=== PATIENT | male | born 1975 | race Caucasian/White ===

== ENCOUNTER 2017-10-06 13:33 | Emergency (ER) | payer BC, OTHER ==
[~2017-10-06] VITALS: Ht 175.3 cm; Wt 88.5 kg
[2017-10-06] MEDS ORDERED: METF1000 PO (14:11)
[2017-10-06] MEDS ORDERED: GLIP10TA13 PO (14:11)
[2017-10-06] MEDS ORDERED: ATOR10TA66 PO (14:11)
[2017-10-06] MEDS ORDERED: ESOM20TA PO (14:11)
[2017-10-06] MEDS ORDERED: LISI10TA2 PO (14:11)
[2017-10-06] MEDS ORDERED: METF-761 PO (14:11)
[2017-10-06 14:25] LABS: CLARITY,URINE CLEAR; COLOR,URINE YELLOW; GLUCOSE, URINE (UA) 2+ (NEGATIVE); KETONES,URINE 1+ (NEGATIVE); LEUKOCYTE ESTERASE ,URINE 2+ (NEGATIVE); NITRITE,URINE NEGATIVE (NEGATIVE); PH,URINE 5 (5-9); PROTEIN,URINE 2+ (NEGATIVE); UROBILINOGEN,URINE 4 MG/DL (NORMAL)
[2017-10-06 14:36] LABS: BASOPHILS % (AUTO) 0 % (0-10); EOSINOPHILS # (AUTO) 0.2 10^3/uL (0.0-0.3); EOSINOPHILS % (AUTO) 2 % (0-10); HEMATOCRIT 46 % (40-54); HEMOGLOBIN 16.2 G/DL (13.3-17.7); LYMPHOCYTES % (AUTO) 22 % (12-44); MEAN CORPUSCULAR HEMOGLOBIN 30 PG (25-34); MEAN CORPUSCULAR HGB CONC 35 G/DL (32-36); MEAN CORPUSCULAR VOLUME 86 FL (80-99); MEAN PLATELET VOLUME 10.3 FL (7.4-10.4); MONOCYTES # (AUTO) 1.2 X 10^3 (0.0-1.0); MONOCYTES % (AUTO) 9 % (0-12); NEUTROPHILS # (AUTO) 9.1 X 10^3 (1.8-7.8); NEUTROPHILS % (AUTO) 68 % (42-75); PLATELET COUNT 236 10^3/uL (130-400); RED BLOOD COUNT 5.35 10^6/uL (4.35-5.85); RED CELL DISTRIBUTION WIDTH 12.7 % (10.0-14.5); WHITE BLOOD COUNT 13.5 10^3/uL (4.3-11.0)
[2017-10-06 14:37] LABS: BACTERIA,URINE TRACE /HPF; BILIRUBIN,URINE 1+ (NEGATIVE); SQUAMOUS EPITHELIAL CELL,UR RARE /HPF
[2017-10-06] MEDS ORDERED: NS IV 1000 ML 1,000 ML IV ONE (14:40)
[2017-10-06] MEDS ORDERED: KETOROLAC 30 MG/ML VIAL IVP STA (14:49)
[2017-10-06 14:59] LABS: ALANINE AMINOTRANSFERASE 110 U/L (0-55); ALBUMIN 4.6 GM/DL (3.2-4.5); ALKALINE PHOSPHATASE 72 U/L (40-136); BILIRUBIN,TOTAL 0.6 MG/DL (0.1-1.0); BUN/CREATININE RATIO 16; CALCIUM 9.5 MG/DL (8.5-10.1); CARBON DIOXIDE 21 MMOL/L (21-32); CHLORIDE 104 MMOL/L (98-107); CREATININE SERUM 0.79 MG/DL (0.60-1.30); GFR ESTIMATED > 60; GLUCOSE 129 MG/DL (70-105); SODIUM 137 MMOL/L (135-145); TOTAL PROTEIN 7.9 GM/DL (6.4-8.2)
[2017-10-06] MEDS ORDERED: CIPROFLOXACIN 500 MG (CIPRO) TABLET PO SCH (16:30)
[2017-10-06] MEDS ORDERED: ACETAMINOPHEN 500 MG TAB (TYLENOL) PO STA (16:32)
[2017-10-06] MEDS ORDERED: CIPR-225 PO (16:39)
--- NOTE | 2017-10-06 16:39 | ED Abdominal Pain ---
General Chief Complaint: Abdominal/GI Problems Stated Complaint: POST-OP PAIN--GB ONE WEEK AGO Nursing Triage Note: PT STATES HAVING GALLBLADDER SURGERY 1 WEEK AGO, CC TODAY OF FLANK PAIN ON LT SIDE AND RT FLANK PAIN THAT RADIATES TO ABD. NORMAL BM YESTERDAY, DENIES URINARY PROBLEMS, LAST MEAL LAST NIGHT. Sepsis Screen: No Definite Risk History of Present Illness Date Seen by Provider: Oct 06, 2017 Time Seen by Provider: 14:10 Initial Comments 42-year-old male reports that one week ago he had a laparoscopic cholecystectomy in [place], [place]. 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 He has been driving for the last 2 days and noticed lower abdominal pain today. He is done no heavy lifting as his restrictions say. He took none of the Tylenol 3 after surgery. He's had no Tylenol or ibuprofen today. He denies any nausea or vomiting. He will drive 6-8 hours for stopping to use the restroom or get out of walk. He denies any nausea or vomiting, he had a normal bowel movement yesterday, brown in color. He reports right abdominal pain and right flank pain. His appetite has been diminished today. Timing/Duration: 1 Day Severity/Quality: Mild Location: RUQ, Flank Radiation: No Radiation Activities at Onset: None Modifying Factors: Improves With Lying down, Improves With Resting Associated Symptoms: Denies Symptoms Allergies and Home Medications Allergies Coded Allergies: No Known Drug Allergies (Unverified , 10/06/17) Home Medications Atorvastatin Calcium 10 Mg Tablet, 10 MG PO DAILY, (Reported) Ciprofloxacin HCl 500 Mg Tablet, 500 MG PO BID, #6 Ref 0 Prescribed by: CONCHIS CHAMBERS on 10/06/17 1639 Esomeprazole Magnesium 20 Mg Tablet.dr, 20 MG PO, (Reported) Glipizide 10 Mg Tablet, 10 MG PO DAILY, (Reported) Lisinopril 10 Mg Tablet, 10 MG PO DAILY, (Reported) Metformin HCl 1,000 Mg Tablet, 2,500 MG PO DAILY, (Reported) Metformin HCl 1,000 Mg [id number], 1,000 MG PO, (Reported) Review of Systems Constitutional: no symptoms reported, see HPI Gastrointestinal: See HPI, Abdominal Pain Genitourinary: See HPI, Denies Burning, Denies Frequency, Flank Pain, Denies Hematuria, Pain All Other Systems Reviewed Negative Unless Noted: Yes Past Iexcejq-Ojmbzp-Rilfsd Hx Patient Social History Alcohol Use: Rarely Uses Alcohol Beverage of Choice: Whiskey Recreational Drug Use: No Smoking Status: Current Everyday Smoker Type Used: Cigarettes Recent Foreign Travel: No Contact w/Someone Who Travel: No Recent Infectious Disease Expo: No Recent Hopitalizations: Yes (09/29/17 FOR SURGERY) Seasonal Allergies Seasonal Allergies: No Surgeries History of Surgeries: Yes Surgeries: Gallbladder Respiratory History of Respiratory Disorde: No Cardiovascular History of Cardiac Disorders: Yes Cardiac Disorders: High Cholesterol, Hypertension Neurological History of Neurological Disord: No Genitourinary History of Genitourinary Disor: No Gastrointestinal History of Gastrointestinal Di: No Musculoskeletal History of Musculoskeletal Dis: No Endocrine History of Endocrine Disorders: No Endocrine Disorders: Diabetes, Non-Insulin dep HEENT History of HEENT Disorders: No Cancer History of Cancer: No Psychosocial History of Psychiatric Problem: No Integumentary History of Skin or Integumenta: No Reviewed Nursing Assessment Reviewed/Agree w Nursing PMH: Yes Physical Exam Vital Signs VS - Last 72 Hours, by Label 10/06/17 10/06/17 10/06/17 10/06/17 14:04 15:35 16:59 17:04 Temp 96.7 96.7 96.7 96.7 Pulse 91 84 Resp 20 20 B/P (MAP) 144/86 (105) 120/76 (105) Pulse Ox 98 98 O2 Delivery Room Air Room Air Capillary Refill : Less Than 3 Seconds General Appearance: WD/WN, no apparent distress HEENT: PERRL/EOMI, normal ENT inspection, TMs normal, pharynx normal Neck: non-tender, full range of motion, supple, normal inspection Respiratory: chest non-tender, lungs clear, normal breath sounds Cardiovascular: normal peripheral pulses, regular rate, rhythm, no edema, no murmur Gastrointestinal: normal bowel sounds, soft, distended, No guarding, No rebound , tenderness (right upper quadrant), No hepatomegaly, No spleenomegaly Extremities: normal range of motion, non-tender, no pedal edema, normal capillary refill, No calf tenderness, other (negative Homans sign, bilaterally. Pedal pulses 2+ and symmetric) Back: normal inspection, no vertebral tenderness, CVA tenderness (R), No decreased range of motion Neurologic/Psychiatric: no motor/sensory deficits, alert, normal mood/affect, oriented x 3 Progress/Results/Core Measures Results/Orders Lab Results Laboratory Tests Test 10/06/17 14:20 10/06/17 14:30 Range/Units Urine Color YELLOW Urine Clarity CLEAR Urine pH 5 5-9 Urine Specific [place] 1.025 H 1.016-1.022 Urine Protein 2+ H NEGATIVE Urine Glucose (UA) 2+ H NEGATIVE Urine Ketones 1+ H NEGATIVE Urine Nitrite NEGATIVE NEGATIVE Urine Bilirubin 1+ H NEGATIVE Urine Urobilinogen 4 H NORMAL MG/DL Urine Leukocyte Esterase 2+ H NEGATIVE Urine RBC (Auto) NEGATIVE NEGATIVE Urine RBC NONE /HPF Urine WBC 5-10 H /HPF Urine Squamous Epithelial Cells RARE /HPF Urine Crystals NONE /LPF Urine Bacteria TRACE /HPF Urine Casts NONE /LPF Urine Mucus MODERATE H /LPF Urine Culture Indicated YES White Blood Count 13.5 H 4.3-11.0 10^3/uL Red Blood Count 5.35 4.35-5.85 10^6/uL Hemoglobin 16.2 13.3-17.7 G/DL Hematocrit 46 40-54 % Mean Corpuscular Volume 86 80-99 FL Mean Corpuscular Hemoglobin 30 25-34 PG Mean Corpuscular Hemoglobin Concent 35 32-36 G/DL Red Cell Distribution Width 12.7 10.0-14.5 % Platelet Count 236 130-400 10^3/uL Mean Platelet Volume 10.3 7.4-10.4 FL Neutrophils (%) (Auto) 68 42-75 % Lymphocytes (%) (Auto) 22 12-44 % Monocytes (%) (Auto) 9 0-12 % Eosinophils (%) (Auto) 2 0-10 % Basophils (%) (Auto) 0 0-10 % Neutrophils # (Auto) 9.1 H 1.8-7.8 X 10^3 Lymphocytes # (Auto) 3.0 1.0-4.0 X 10^3 Monocytes # (Auto) 1.2 H 0.0-1.0 X 10^3 Eosinophils # (Auto) 0.2 0.0-0.3 10^3/uL Basophils # (Auto) 0.0 0.0-0.1 10^3/uL Sodium Level 137 135-145 MMOL/L Potassium Level 4.0 3.6-5.0 MMOL/L Chloride Level 104 98-107 MMOL/L Carbon Dioxide Level 21 21-32 MMOL/L Anion Gap 12 5-14 MMOL/L Blood Urea Nitrogen 13 7-18 MG/DL Creatinine 0.79 0.60-1.30 MG/DL Estimat Glomerular Filtration Rate > 60 BUN/Creatinine Ratio 16 Glucose Level 129 H 70-105 MG/DL Calcium Level 9.5 8.5-10.1 MG/DL Total Bilirubin 0.6 0.1-1.0 MG/DL Aspartate Amino Transf (AST/SGOT) 41 H 5-34 U/L Alanine Aminotransferase (ALT/SGPT) 110 H 0-55 U/L Alkaline Phosphatase 72 40-136 U/L Total Protein 7.9 6.4-8.2 GM/DL Albumin 4.6 H 3.2-4.5 GM/DL My Orders Orders - CONCHIS CHAMBERS Cbc With Automated Diff (10/06/17 14:19) Comprehensive Metabolic Panel (10/06/17 14:19) Ua Culture If Indicated (10/06/17 14:19) Urine Culture (10/06/17 14:20) Saline Lock/Iv-Start (10/06/17 14:40) Ns Iv 1000 Ml (Sodium Chloride 0.9%) (10/06/17 14:40) Ketorolac Injection (Toradol Injection) (10/06/17 14:49) Acetaminophen Tablet (Tylenol Tablet) (10/06/17 16:32) Ciprofloxacin Tablet (Cipro Tablet) (10/06/17 16:30) Medications Given in ED Current Medications Medications Dose Ordered Sig/Cruz Route Start Time Stop Time Status Last Admin Dose Admin Sodium Chloride 1,000 ml @ 0 mls/hr Q0M ONCE IV 10/06/17 14:40 10/06/17 14:41 DC 10/06/17 14:47 1,000 MLS/HR Vital Signs/I&O Vital Sign - Last 12Hours 10/06/17 10/06/17 10/06/17 10/06/17 14:04 15:35 16:59 17:04 Temp 96.7 96.7 96.7 96.7 Pulse 91 84 Resp 20 20 B/P (MAP) 144/86 (105) 120/76 (105) Pulse Ox 98 98 O2 Delivery Room Air Room Air Blood Pressure Mean: 105 Progress Note : Time: 14:10 Progress Note Initial evaluation completed, recommended labs, IV normal saline 1 L and Toradol 30 mg IV for pain. 1500 patient notes minimal improvement in his pain. Declines wanting to take anything stronger than Tylenol. Discussed the importance of him stopping frequently to get out of walk. He also needs to increase his water intake. He is to call and notify his surgeon of his symptoms, if they worsen. Keep his scheduled follow-up for next week. 1600 Tylenol 1000 mg by mouth. Discharge instructions, return precautions, and risks from being in a car for prolonged period after having surgery were discussed at length with the patient and significant other. All questions answered. Departure Impression Impression: Primary Impression: Postoperative pain Additional Impression: UTI (urinary tract infection) Qualified Codes: N30.00 - Acute cystitis without hematuria Disposition: HOME, SELF-CARE Condition: Improved Departure-Patient Inst. Decision time for Depature: 16:00 Referrals: NO,LOCAL PHYSICIAN (PCP/Family) Primary Care Physician Patient Instructions: Acute Abdomen (Belly Pain), Adult (DC), Cholecystectomy ( DC), Urinary Tract Infection, Adult (DC) Add. Discharge Instructions: Increase water intake, empty bladder every 2 hours while awake. Stop every 2 hours to walk for 5-10 minutes. Antibiotic antibiotic as prescribed. Alternate between Tylenol 650 mg and ibuprofen 600 mg every 4 hours for pain Keep scheduled follow-up with your surgeon for next Thursday. If fever greater than 101, increased pain, decreased urinary output, nausea or vomiting or new problems stop in an emergency department. All discharge instructions reviewed with patient and/or family. Voiced understanding. Scripts Ciprofloxacin HCl (Cipro) 500 Mg Tablet 500 MG PO BID, #6 TAB 0 Refills Prov: CONCHIS CHAMBERS 10/06/17 CONCHIS CHAMBERS Oct 06, 2017 16:39
[2017-10-06 17:04] VITALS: BP 120/76
== END 2017-10-06 17:04 | disposition home or self-care (01) ==
LOC: ER 13:37
DX: G89.18 Other acute postprocedural pain (principal); N39.0 Urinary tract infection, site not specified; E78.00 Pure hypercholesterolemia, unspecified; I10 Essential (primary) hypertension; E11.9 Type 2 diabetes mellitus without complications; F17.210 Nicotine dependence, cigarettes, uncomplicated; Z79.84 Long term (current) use of oral hypoglycemic drugs; Z90.49 Acquired absence of other specified parts of digestive tract
CPT/HCPCS: 36415; 80053; 81000; 85025; 87088